=== PATIENT | male | born 1960 | race Caucasian/White ===

== ENCOUNTER 2019-04-02 09:53 | Inpatient (IN) ==
[2019-04-02] MEDS ORDERED: NITROGLYCERIN TOP ONE (10:04)
[2019-04-02] MEDS ORDERED: DUONEB (A & A) INH ONE (10:05)
[2019-04-02] MEDS ORDERED: SOLU-MEDROL IV ONE (10:05)
[2019-04-02 10:21] LABS: BASO# 0.06 X1000 (0.0-0.2); BASO% 0.5 % (0.0-0.8); EOS# 0.33 X1000 (0.0-0.7); HEMATOCRIT 55.8 % (42.0-52.0); HEMOGLOBIN 19.1 g/dL (14.0-18.0); IMM GRAN% 0.9 % (0.0-0.5); LYMPH# 4.11 X1000 (1.2-3.4); LYMPH% 37.4 % (20.5-51.1); MCH 29.9 PG (27-31); MCHC 34.2 g/dL (33-37); MCV 87.5 FL (81-99); MONO# 0.77 X1000 (0.11-0.59); MPV 11.7 FL (7.4-10.4); NEUT# 5.61 X1000 (1.4-6.5); NEUT% 51.2 % (42.2-75.2); PLT 222 X1000 (130-400); RBC 6.38 XMIL (4.7-6.1); RDW 13.1 % (11.5-14.5); WBC 10.98 X1000 (4.8-10.8)
[2019-04-02 10:26] LABS: INR 0.88; PROTIME 12.6 Seconds (11.0-16.0)
--- NOTE | 2019-04-02 10:35 | Diag Imaging Result Doc PS360 ---
EXAM: CHEST-PORTABLE - 04/02/2019 HISTORY: dyspnea TECHNIQUE: Portable chest COMPARISON: 03/15/2019 FINDINGS: Heart size appears the upper range of normal. There are sternal wires from previous surgery again seen. There is interstitial marking prominence. There is ill-defined infiltrate at the mid and lower lung on the left. These findings may relate to pulmonary edema. There is mild thickening of the right minor fissure. There is no large pleural effusion or pneumothorax identified. IMPRESSION: Findings which are suggestive of pulmonary edema. Pneumonia on the left is not excluded, however. Electronically signed by Esdras Vieyra 04/02/2019 10:33 AM
[2019-04-02] MEDS ORDERED: ROCEPHIN 2 GM in NS 50 ML IV ONE (10:42)
[2019-04-02] MEDS ORDERED: ZITHROMAX 500 MG/NS 500 MG/250 ML IVPB IV ONE (10:43)
[2019-04-02] MEDS ORDERED: MORPHINE IV ONE (10:45)
[2019-04-02 11:00] LABS: AGAP 22; ALB/GLOB RATIO 1.1; ALBUMIN 3.9 g/dL (3.5-5.0); ALKALINE PHOSPHATASE 126 U/L (32-122); BUN 11 mg/dL (8-22); CALCIUM 8.8 mg/dL (8.8-10.2); CHLORIDE 101 mmol/L (98-107); CK PROFILE 137 U/L (24-204); COSMO 298; CREATININE 0.9 mg/dL (0.7-1.2); ESTIMATED GFR > 60; GOT 33 U/L (10-34); GPT 41 U/L (10-44); POTASSIUM 3.4 mmol/L (3.5-5.1); SODIUM 141 mmol/L (136-145); TCO2 18 mmol/L (25-35); TOTAL BILIRUBIN 0.38 mg/dL (0.20-1.00); TOTAL PROTEIN 7.6 g/dL (6.3-8.3)
[2019-04-02 11:07] LABS: GLUCOSE 402 mg/dL (70-104)
[2019-04-02] MEDS ORDERED: HUMULIN R IV ONE (11:08)
[2019-04-02] MEDS ORDERED: LASIX IV ONE (11:09)
[2019-04-02 12:06] LABS: ALLEN TEST YES; BE -2.5 mmoll (-3.0-3.0); BLOOD TYPE ARTERIAL; HCO3-(ACT) 22.9 mmoll (20.0-26.0); METHB 0.7 % (0.0-1.5); O2(CT) 25.2 mL/dL (15.0-23.0); PCO2(98.6) 36 mmHg (35-45); PO2(98.6) 129 mmHg (60-100); SAMPLE BLOOD; SAO2 99.6 % (95.0-100.0); THB 18.4 g/dL (11.5-17.4); pH(98.6) 7.39 (7.35-7.45)
[2019-04-02 12:07] LABS: MODALITY NRB
--- NOTE | 2019-04-02 13:06 | Diag Imaging Result Doc PS360 ---
EXAM: CT THORAX W/O CONTRAST 04/02/2019 HISTORY: resp failure TECHNIQUE: This exam was performed using automated exposure control, adjustment of mA or kV according to patient size, and/or use of iterative reconstruction technique. COMMENT: There is severe COPD. There is interstitial opacity and a patchy distribution but particularly in the lingula right middle lobe and lower lobes with patchy denser alveolar opacity present in both lower lobes. Compared to 09/26/2017 these abnormalities were not present previously. There is apparent hepatic steatosis. This is worse in the right lobe than the left. There are extensive coronary calcifications and there has been previous sternotomy. No there is a small right pleural effusion which was not previously present. The regional skeleton is stable in appearance. IMPRESSION: Pulmonary edema plus minus pneumonia. Electronically signed by Fran Patel 04/02/2019 1:04 PM
[2019-04-02] MEDS ORDERED: ASPIRIN PO SCH (13:15)
--- NOTE | 2019-04-02 13:20 | EKG Report ---
Test Performed on : 04/02/2019 10:35:58 AM Test Reason : TACHYCARDIA Blood Pressure : / mmHG Vent. Rate : 102 BPM Atrial Rate : 102 BPM P-R Int : 152 ms QRS Dur : 122 ms QT Int : 384 ms P-R-T Axes : 025 -43 121 degrees QTc Int : 500 ms Sinus tachycardia. Possible Left atrial enlargement Left axis deviation Left ventricular hypertrophy with QRS widening and repolarization abnormality Abnormal ECG When compared with ECG of 15-MAR-2019 23:11, (Unconfirmed) ST now depressed in Anterior leads Unconfirmed Result
[2019-04-02] MEDS ORDERED: LOVENOX SUBQ SCH (13:30)
[2019-04-02 13:45] LABS: HEMOGLOBIN A1C > 19.9 % (4.8-6.0)
--- NOTE | 2019-04-02 14:14 | HISTORY AND PHYSICAL ---
STAFFING MGR: Dr. Nicholas Reaves. CHIEF COMPLAINT: Dyspnea. HISTORY OF PRESENT ILLNESS: Mr. Shrestha is a 58-year-old male with a history of known coronary artery disease status post CABG and stenting, type 2 diabetes requiring insulin, COPD, and others, who presents with acute onset of shortness of breath that began yesterday, he started having a productive cough, subjective fever and chills, and substernal chest pain. This morning, his symptoms worsened to the point where he felt like he could not move air and he called 911. When he arrived to the ER, he was noted to be tachypneic, tachycardic, and slightly hypoxic. He was given IV steroids, antibiotics, breathing treatment, and his chest x-ray showed suggestion of pulmonary edema with pneumonia not excluded. Laboratory data shows hemoconcentration, elevated lactic acid, elevated anion gap, metabolic acidosis, as well as hyperglycemia. Flu test is positive for Flu A. He will be admitted for further treatment and evaluation. PAST MEDICAL HISTORY: 1. Coronary artery disease status post NV and stenting as well as CABG, apparently scheduled for a defibrillator in the near future. 2. COPD. 3. Type 2 diabetes requiring insulin. 4. History of brain aneurysm. 5. Hypertension. 6. Hyperlipidemia. PAST SURGICAL HISTORY: Brain aneurysm repair, CABG, inguinal hernia repair, coronary stenting, diabetic ulcer repair. SOCIAL HISTORY: Denies tobacco, alcohol, or drug use. He lives alone. FAMILY HISTORY: Significant for type 2 diabetes. ALLERGIES: Vancomycin, latex, nitroglycerin, adhesives. HOME MEDICATIONS: Have yet to be compiled by the nursing staff. REVIEW OF SYSTEMS: A 14-point review of systems obtained and found to be negative with the exception of the HPI. PHYSICAL EXAMINATION: VITAL SIGNS: Blood pressure is 169/107, heart rate is 127, respiratory rate is 32, O2 saturation 95% on 100% nonrebreather, temperature is 97.9. GENERAL: Chronically ill-appearing 58-year-old male lying in hospital bed in mild respiratory distress. HEENT: Head is atraumatic, normocephalic. His pupils are equal, round, and reactive to light. Oral mucosa is dry. CHEST: Diminished throughout but otherwise clear to auscultation. CARDIOVASCULAR: Tachycardic but regular. S1 and S2 is noted. There are no murmurs. GASTROINTESTINAL: Soft, nondistended, nontender. Bowel sounds positive. EXTREMITIES: Trace edema. Pulses 1+ bilaterally. DIAGNOSTIC DATA: WBC 10.98, hemoglobin 19.1, hematocrit 55.8, platelet count 222. INR 0.88. ABG: pH 7.39, CO2 36, O2 129, bicarbonate 22.9. Sodium 141, potassium 3.4, chloride 101, CO2 18, anion gap 22, BUN 11, creat 0.9, glucose is 402, alkaline phosphatase 126. ProBNP is 606. Lactic acid 6.5. EKG shows sinus tach with ST depression in the anterior leads. ASSESSMENT AND PLAN: 1. Acute respiratory distress: Likely a combination of chronic obstructive pulmonary disease exacerbation, influenza A, and community-acquired pneumonia. Will continue with breathing treatments, aggressive pulmonary toilet, antibiotics, Tamiflu. He was given IV diuresis in the ER. Blood and sputum cultures have been ordered. 2. Early Sepsis: Pt is tachycardic with elevated lactate and is Flu +, likely with superimposed CAP. He was given mild diuresis in the ER, will need to monitor his volume status closely as there is evidence of volume overload (pulmonary edema) as well as sepsis. Will follow his I/Os and daily weights closely. 3. Coronary artery disease: The patient does report atypical type chest pain mainly midsternal with coughing, however, his EKG does show ST depression in the anterior leads. We will trend enzymes, check an echocardiogram, continue aspirin. We will consult cardiology if he has continued chest pain or his cardiac enzymes trend upward. 4. Type 2 diabetes: His blood sugar is 402, while he does have an elevated anion gap, his lactate is quite elevated which can explain his gap. We will check an abg, if he is not acidotic, we will continue with sub-q insulin. Check hemoglobin A1c, pattern sugar, sliding scale insulin. Deep venous thrombosis prophylaxis with Lovenox, Further recommendations to follow. Dictated by ALEJANDRA Reyes for Tristin Arellano MD cc: ALEJANDRA Reyes Agree with the above. the following is my own face to face assessment. Patient with multifactorial respiratory problems. copd exac, likely pneumonia, and possible CHF. labs look volume down as does the patient on exam so will hold on further lasix. get echo to clarify EF. if BP worsens then will likely give IVF. MTDD
[2019-04-02] MEDS: NORCO-7.5 PO SCH ×2 (15:56→21:36)
[2019-04-02] MEDS: TAMIFLU PO SCH ×2 (15:57→21:36)
[2019-04-02] MEDS: ROCEPHIN 1 GM in NS 50 ML IV SCH (15:57)
[2019-04-02 16:00] LABS: URINE SOURCE CLEAN CATCH
[2019-04-02 16:05] LABS: BILIRUBIN URINE NEGATIVE (NEGATIVE); BLOOD URINE NEGATIVE (NEGATIVE); COLOR STRAW; GLUCOSE URINE >1000 mg/dL (NEGATIVE); KETONE URINE NEGATIVE (NEGATIVE); LEUKOCYTES URINE NEGATIVE (NEGATIVE); NITRITE URINE NEGATIVE (NEGATIVE); PH URINE 5.5; PROTEIN URINE NEGATIVE (NEGATIVE); SP GRAVITY URINE 1.007; TURBIDITY URINE CLEAR (CLEAR); UROBILINOGEN URINE NORMAL (NORMAL)
[2019-04-02 16:06] LABS: UR EPITHELIAL CELLS <10 /HPF (<10); URINE BACTERIA NEGATIVE /HPF; URINE RBC <10 /HPF (<10); URINE WBC <10 /HPF (<10)
[2019-04-02] MEDS: HUMALOG SUBQ SCH ×2 (17:16→21:37)
--- NOTE | 2019-04-02 17:53 | PROVIDER DOCUMENTATION ---
This chart was entered by Agnes Rosenberg Scribe, acting as scribe for Jay Lynch MD. HPI-Respiratory General - General Chief Complaint: Shortness of Breath Stated Complaint: SOB Time Seen by Provider: 04/02/19 09:57 Source: patient Allergies/Adverse Reactions: Patient Allergies Allergy/AdvReac Type Severity Reaction Status Date / Time vancomycin Allergy Severe SHORTNESS Verified 03/15/19 23:51 OF BREATH latex Allergy Intermediate HIVES Verified 03/15/19 23:51 nitroglycerin Allergy RASH Verified 04/02/19 10:13 adhesive AdvReac Mild RASH Verified 03/15/19 23:51 Home Medications: Home Medication List Medication Instructions Recorded Confirmed Last Taken Type Aspirin [Aspirin EC] 1 each PO QAM 04/09/16 04/02/19 04/01/19 09:00 History Gabapentin [Neurontin] 600 mg PO TID 09/14/17 04/02/19 03/31/19 History Insulin Aspart Prot/Insuln Asp 40 unit SQ BID 09/14/17 04/02/19 09/13/17 History [Novolog Mix 70-30 Vial] Carvedilol 1 tab PO BID 03/16/19 04/02/19 03/31/19 History Hydrocodone/Acetaminophen [[place] 1 tab PO RTBID 03/16/19 04/02/19 Unknown History 7.5-325 Tablet] Isosorbide Mononitrate [Isosorbide 1 tab PO QAM 03/16/19 04/02/19 04/01/19 09:00 History Mononitrate ER] Prasugrel [Effient] 1 tab PO QAM 03/16/19 04/02/19 03/30/19 History - History of Present Illness-Resp Nature of Presenting Problem: 58 y/o male presents to ED with SOB onset yesterday and worsening this morning. Pt reports he feels like he did when he had pneumonia. Pt also complains of productive cough, chills, subjective fever, and substernal chest pain for the past 3 days. Pt arrived via EMS on a nonrebreather. Pt is alert and oriented. Quality of Pain: reports: sharp Severity in ED: reports: moderate Onset/Duration: reports: 24 hours ago, 3 days ago Timing: reports: still present Context: reports: other Exposure: reports: unknown cause Cough Quality/Degree: reports: productive cough Episode Frequency: no prior episodes Current Respiratory Medication Therapy: Initiated see nurses note Modifying Factors: improves with: nothing Associated Symptoms: reports: chest pain/soreness, cough, fever/chills, shortness of breath, short of breath Similar Symptoms Previously?: No Recently seen or treated by another doctor?: No Review of Systems - Adult - REVIEW OF SYSTEMS - ADULT Constitutional: reports: chills, fever Eyes: reports: no symptoms reported Ears, Nose, Mouth & Throat: reports: no symptoms reported Cardiovascular: reports: chest pain. denies: palpitations Respiratory: reports: cough, shortness of breath Gastrointestinal: denies: abdominal pain, diarrhea, nausea, vomiting Genitourinary: reports: no symptoms reported Musculoskeletal: denies: back pain, joint pain Integumentary: reports: no symptoms reported Neurological: denies: dizziness/vertigo, seizure Psychiatric: reports: no symptoms reported Endocrine: reports: no symptoms reported Hematologic/Lymphatic: reports: no symptoms reported Allergic/Immunologic: reports: no symptoms reported All Other Systems: Reviewed and Negative Past History - Adult - PAST MEDICAL HISTORY-ADULT Review of Records: reports: Old Records Reviewed, Nursing Assessment Review, Medications Reviewed Major Childhood Illnesses: reports: denies history Cardiovascular: reports: CHF, HTN, hyperlipidemia, [place] Respiratory: reports: denies history Gastrointestinal: reports: GERD Obstetrical/Gynecological: reports: denies history Genitourinary: reports: denies history Musculoskeletal: reports: chronic pain, other Neurological: reports: CVA, spinal cord/brain injury, TIA, other (brain aneurysm) Psychiatric: reports: anxiety, depression Endocrine/Immune: reports: Diabetes Other Conditions: reports: other cancer, other (charcot Maile-Tooth) - PRIOR SURGERIES/PROCEDURES Surgical/Procedure History: reports: recent surgery, CABG, cardiac stent, tonsillectomy, hernia repair, orthopedic (extremity) (foot debribement), other - PRIOR HOSPITALIZATIONS Prior Hospitalizations: reports: for similar symptoms - IMMUNIZATION STATUS Childhood Immunizations: See Nurse Assessment Flu Vaccine: See Nurse Assessment - FAMILY HISTORY Family History: reviewed, not pertinent - SOCIAL HISTORY Smoking: quit greater than 1 year Substance Use: none/never Alcohol Use Frequency: never Living Situation: family Physical Exam-General - PHYSICAL EXAM-ADULT Initial Vital Signs Reviewed: Yes - CONSTITUTIONAL General Appearance: alert, severe distress - EYES Eyes: PERRL/EOMI, pink conjunctivae - HEAD, EARS, NOSE, MOUTH & THROAT HENMT: normocephalic/atraumatic, moist mucous membranes, normal ENT inspection - NECK Neck: non-tender, full range of motion - RESPIRATORY Respiratory: chest non-tender, respiratory distress, rhonchi (diffuse), increased rate - CARDIOVASCULAR Cardiovascular: tachycardia - GASTROINTESTINAL (ABDOMEN) Abdominal Exam: normal bowel sounds, non tender, soft - MUSCULOSKELETAL Back Exam: normal inspection, no CVA tenderness Extremity: normal range of motion, non-tender - SKIN Integumentary: normal color, warm/dry, diaphoresis - NEUROLOGIC Neurologic: grossly normal - PSYCHIATRIC Psych/Mental Status: normal mood/affect, normal thought content, normal thought process - HEART Score HEART Score: History: Slightly Suspicious HEART Score: ECG: Non-Specific Repolarization Disturbance/LBBB/PM HEART Score: Age: 45-65 Years HEART Score: Risk Factors for Atherosclerotic Disease: > or = 3 Risk Factors or History of Atherosclerotic Disease HEART Score: Troponin: < or = Normal Limit Total HEART Score:: 4 Progress - PLAN OF CARE/RESULTS Progress/Plan/Lab Results: Vital Signs - 8 hr 04/02/19 10:02 04/02/19 10:25 Temperature 97.9 F Pulse Rate 127 H Respiratory Rate 32 H 28 H Blood Pressure 169/107 O2 Sat by Pulse Oximetry 95 98 04/02/19 10:31 Influenza Screen - Final Nasopharyngeal Laboratory Results - last 24 hr 04/02/19 04/02/19 04/02/19 10:03 10:03 10:03 WBC 10.98 H RBC 6.38 H Hgb 19.1 H Hct 55.8 H MCV 87.5 MCH 29.9 MCHC 34.2 RDW Std Deviation 13.1 Plt Count 222 MPV 11.7 H Immature Gran % (Auto) 0.9 H Neut % (Auto) 51.2 Lymph % (Auto) 37.4 Garza % (Auto) 7.0 Eos % (Auto) 3.0 Baso % (Auto) 0.5 Immature Gran # (Auto) 0.10 H Neut # (Auto) 5.61 Lymph # (Auto) 4.11 H Garza # (Auto) 0.77 H Eos # (Auto) 0.33 Baso # (Auto) 0.06 PT INR PTT (Actin FS) Specimen Type Sample Site pH pCO2 pO2 HCO3 Base Excess Oxyhemoglobin ABG O2 Sat (Calculated) ABG O2 Saturation ABG Carboxyhemoglobin ABG Methemoglobin Shashi Test A-a O2 Difference Total Hemoglobin Lactate Liter Flow Blood Gas Modality FiO2 % Sodium 141 Potassium 3.4 L Chloride 101 Carbon Dioxide 18 L Anion Gap 22 BUN 11 Creatinine 0.9 Estimated GFR/1.73 m2 > 60 BUN/Creatinine Ratio 12 Glucose 402 H* Estimat Average Glucose Hemoglobin A1c Calculated Osmolality 298 Calcium 8.8 Total Bilirubin 0.38 AST 33 ALT 41 Alkaline Phosphatase 126 H Creatine Kinase 137 Troponin T Ulj-Y-Thiyqffercx Pept Total Protein 7.6 Albumin 3.9 Globulin 3.7 Albumin/Globulin Ratio 1.1 Lipase Plasma Lactate 6.5 H 04/02/19 04/02/19 04/02/19 10:03 10:03 10:03 WBC RBC Hgb Hct MCV MCH MCHC RDW Std Deviation Plt Count MPV Immature Gran % (Auto) Neut % (Auto) Lymph % (Auto) Garza % (Auto) Eos % (Auto) Baso % (Auto) Immature Gran # (Auto) Neut # (Auto) Lymph # (Auto) Garza # (Auto) Eos # (Auto) Baso # (Auto) PT 12.6 INR 0.88 PTT (Actin FS) 26.0 Specimen Type Sample Site pH pCO2 pO2 HCO3 Base Excess Oxyhemoglobin ABG O2 Sat (Calculated) ABG O2 Saturation ABG Carboxyhemoglobin ABG Methemoglobin Shashi Test A-a O2 Difference Total Hemoglobin Lactate Liter Flow Blood Gas Modality FiO2 % Sodium Potassium Chloride Carbon Dioxide Anion Gap BUN Creatinine Estimated GFR/1.73 m2 BUN/Creatinine Ratio Glucose Estimat Average Glucose Hemoglobin A1c Calculated Osmolality Calcium Total Bilirubin AST ALT Alkaline Phosphatase Creatine Kinase Troponin T 0.032 Esw-U-Ukyuibwwiok Pept 606 H Total Protein Albumin Globulin Albumin/Globulin Ratio Lipase Plasma Lactate 04/02/19 04/02/19 04/02/19 10:03 10:03 11:57 WBC RBC Hgb Hct MCV MCH MCHC RDW Std Deviation Plt Count MPV Immature Gran % (Auto) Neut % (Auto) Lymph % (Auto) Garza % (Auto) Eos % (Auto) Baso % (Auto) Immature Gran # (Auto) Neut # (Auto) Lymph # (Auto) Garza # (Auto) Eos # (Auto) Baso # (Auto) PT INR PTT (Actin FS) Specimen Type ARTERIAL Sample Site R RADIAL pH 7.39 pCO2 36 pO2 129 H HCO3 22.9 Base Excess -2.5 Oxyhemoglobin 97.0 ABG O2 Sat (Calculated) 25.2 H ABG O2 Saturation 99.6 ABG Carboxyhemoglobin 1.80 ABG Methemoglobin 0.7 Shashi Test YES A-a O2 Difference 539.0 Total Hemoglobin 18.4 H Lactate 3.50 H Liter Flow 15.0 Blood Gas Modality NRB FiO2 % 100.0 Sodium Potassium Chloride Carbon Dioxide Anion Gap BUN Creatinine Estimated GFR/1.73 m2 BUN/Creatinine Ratio Glucose Estimat Average Glucose Hemoglobin A1c > 19.9 H Calculated Osmolality Calcium Total Bilirubin AST ALT Alkaline Phosphatase Creatine Kinase Troponin T Oyg-D-Wvwxalzdwsi Pept Total Protein Albumin Globulin Albumin/Globulin Ratio Lipase 41 Plasma Lactate Orders Category Date Time Status Admit - [facility] Routine AdmDCTranf 04/02/19 11:31 Active Activity - Up with Assistance ORDERED Care 04/02/19 13:06 Active DVT/PE Risk Assess/Protocol [QM] ORDERED Care 04/02/19 13:06 Active Intake and Output-Strict ORDERED Care 04/02/19 13:06 Active Vital Signs Order Q 4-HR ASSESS Care 04/02/19 13:06 Active Z-Document. for Tele Applied ORDERED Care 04/02/19 13:06 Completed Diabetic Diet Diet 04/02/19 13:11 Active CHEST-PORTABLE [RAD] Stat Exams 04/02/19 10:[address] THORAX W/O CONTRAST [CT] Stat Exams 04/02/19 12:14 Completed A1C HGB W EST AVG GLUCOSE [CHEM] Timed Lab 04/02/19 10:03 Completed ABG [RESP] Routine Lab 04/02/19 11:57 Completed BASIC METABOLIC PANEL [CHEM] DAILY Lab 04/03/19 06:00 Ordered BASIC METABOLIC PANEL [CHEM] DAILY Lab 04/04/19 06:00 Ordered BASIC METABOLIC PANEL [CHEM] DAILY Lab 04/05/19 06:00 Ordered BLOOD CULTURE [BLDCUL] Stat Lab 04/02/19 10:03 Results CBC WITH DIFF [HEME] DAILY Lab 04/03/19 06:00 Ordered CBC WITH DIFF [HEME] DAILY Lab 04/04/19 06:00 Ordered CBC WITH DIFF [HEME] DAILY Lab 04/05/19 06:00 Ordered CBC WITH ELECTRONIC DIFF [HEME] Stat Lab 04/02/19 10:03 Completed CK PROFILE [SP CHEM] Q8H Lab 04/02/19 13:32 Completed CK PROFILE [SP CHEM] Q8H Lab 04/02/19 21:00 Ordered CK PROFILE [SP CHEM] Stat Lab 04/02/19 10:03 Completed COMPREHENSIVE METABOLIC PANEL [CHEM] Stat Lab 04/02/19 10:03 Completed FREE T4 Timed Lab 04/02/19 13:32 Completed INFLUENZA SCREEN A/B Stat Lab 04/02/19 10:31 Completed LACTATE, PLASMA [CHEM] Stat Lab 04/02/19 10:03 Completed LACTATE, PLASMA [CHEM] Stat Lab 04/02/19 14:44 Completed LIPASE [CHEM] Stat Lab 04/02/19 10:03 Completed LIPID PROFILE W/DIR LDL [LIPIDS] Routine Lab 04/03/19 06:00 Ordered MAGNESIUM [CHEM] DAILY Lab 04/03/19 06:00 Ordered MAGNESIUM [CHEM] DAILY Lab 04/04/19 06:00 Ordered MAGNESIUM [CHEM] DAILY Lab 04/05/19 06:00 Ordered PRO B-NATRIURETIC PEPTIDE Stat Lab 04/02/19 10:03 Completed PROTIME WITH INR [COAG] Stat Lab 04/02/19 10:03 Completed PTT [COAG] Stat Lab 04/02/19 10:03 Completed TROPONIN T Q8H Lab 04/02/19 13:32 Completed TROPONIN T Q8H Lab 04/02/19 21:00 Ordered TROPONIN T Stat Lab 04/02/19 10:03 Completed TSH Timed Lab 04/02/19 13:32 Completed URINALYSIS W/POSS RFLX CULT [URINALYSIS] Routine Lab 04/02/19 15:00 Completed Albuterol 2.5MG/Ipratrop 0.5MG [Duoneb (A & A)] Med 04/02/19 10:05 Discontinued 3 ml INH NOW ONE Aspirin Med 04/02/19 13:15 Active 325 mg PO DAILY Azithromycin 500 mg/Ns [Zithromax 500 mg/Ns] Med 04/02/19 10:43 Discontinued 500 mg in 250 ml IV NOW Azithromycin 500 mg/Ns [Zithromax 500 mg/Ns] Med 04/03/19 11:00 Active 500 mg in 250 ml IV Q24H CefTRIAXONE [Rocephin] 1 gm Med 04/02/19 13:00 Active 0.9% Sodium Chloride Inj [Ns] 50 ml IV Q24H CefTRIAXONE [Rocephin] 2 gm Med 04/02/19 10:42 Discontinued 0.9% Sodium Chloride Inj [Ns] 50 ml IV NOW Furosemide [Lasix] Med 04/02/19 11:09 Discontinued 40 mg IV NOW ONE Insulin Human Regular [Humulin R] Med 04/02/19 11:08 Discontinued 10 unit IV NOW ONE Insulin Lispro [Humalog] Med 04/02/19 16:00 Active See Protocol SUBQ 0700,1100,1600,2100 Methylprednisolone Sod Succ [Solu-Medrol] Med 04/02/19 10:05 Discontinued 125 mg IV NOW ONE Morphine Med 04/02/19 10:45 Discontinued 2 mg IV NOW ONE Nitroglycerin Med 04/02/19 10:04 Discontinued 1 inch TOP NOW ONE Oseltamivir [Tamiflu] Med 04/02/19 13:00 Active 75 mg PO BID Aerosol Treatments Routine Oth 04/02/19 10:05 Completed Aerosol Treatments Stat Oth 04/02/19 10:05 Completed BIPAP Stat Oth 04/02/19 10:18 Completed Telemetry [OM.EQ] Routine Oth 04/02/19 13:06 Active Transfer/Admit Order [TRANSFER] Routine Transfer 04/02/19 12:46 Completed Result Diagrams: 04/02/19 10:03 04/02/19 10:03 - REASSESSMENT Reassessment #1 Time Reassessed: 10:28 Status: improving (Pt appears more comfortable. Heart rate improved. Pt still complaining of chest pain. Repeat EKG ordered.) Reassessment #2 Time Reassessed: 10:40 Status: other (Lactate noted. Pt has hx CHF with possible active exacerbation. Will defer fluid bolus pending remainder of workup.) Reassessment #3 Time Reassessed: 11:22 Status: other (Pt has taken his nonrebreather off and is now complaining of abd ominal pain, but states it might be the goody powder he took this morning.) - EKG 1 Time of EKG reading by physician:: 09:59 EKG Read and Signed by:: Jay Lynch EKG Interpretation (*Must complete 3 of following elements*): Abnormal Rate: 127 Rhythm: Sinus tach with occasional PVCs [place]: left QRS: LVH (with repolarization abnormality), PVC's, other (possible L atrial enlargement) HI Interval: normal ST Wave: normal 2 Time of EKG reading by physician:: 10:35 EKG Read and Signed by:: Jay Lynch EKG Interpretation (*Must complete 3 of following elements*): Abnormal Rate: 102 Rhythm: Sinus tach [place]: left QRS: LVH (with QRS widening and repolarization abnormality), other (possible L atrial enlargement) HI Interval: normal ST Wave: normal - XRAY 1 XRAY Study: Chest Impression: Abnormal (FINDINGS: Heart size appears the upper range of normal. There are sternal wires from previous surgery again seen. There is interstitial marking prominence. There is ill-defined infiltrate at the mid and lower lung on the left. These findings may relate to pulmonary edema. There is mild thickening of the right minor fissure. There is no large pleural effusion or pneumothorax identified. IMPRESSION: Findings which are suggestive of pulmonary edema. Pneumonia on the left is not excluded, however. Electronically signed by Esdras Vieyra 04/02/2019 10:33 AM) - CONSULTS/PCP/HOSPITALIST Notification #1 *Consult/PCP/Hospitalist*: ALEJANDRA Fuller for Dr. Arellano Time Discussed: 11:30 Reason/Comments: SOB, respiratory distress Consult Disposition: Admit Departure - Departure Date of Disposition Decision: 04/02/19 Time of Disposition Decision: 11:31 DIAGNOSIS: SOB (shortness of breath), Respiratory distress Disposition: ADMITTED INPATIENT 09 Certified Medical Emergency: Emergent Condition: Fair - Critical Care Note This patient required my direct & personal management of CC.: Yes Total Time (mins): 43 Critical Care Statement: This patient required my direct personal management to treat or rule out processes, the absence of which, could potentiallly result in sudden, clinically significant life or limb threatening deterioration. Attestation - Physician/ ADRIANA Attestation Patient care was provided by Advanced Practice Provider:: No The physician spent face to face time with patient:: Yes Advanced Practice Provider documentation review:: Supervising physician onsite and consulted in the evaluation and care of this patient. The physician did have a face to face encounter with the patient. This chart was documented by the indicated scribe, (Agnes Rosenberg Scribe) and accurately reflects the services I performed and decisions made by , Jay Lynch MD, as attested by the provider's signature.
--- NOTE | 2019-04-02 18:49 | CARDIOLOGY CONSULTATION ---
DATE: 04/02/2019 CHIEF COMPLAINT ON PRESENTATION: Dyspnea. HISTORY OF PRESENT ILLNESS: Mr. Shrestha is a 58-year-old white male with a history of coronary disease with previous bypass grafting who presented with 2 to 3 days of shortness of breath, subjective fever, and productive cough. He cannot think any sick contacts and has had a flu shot which he received last fall. He has had some discomfort in his chest that occurs predominantly with coughing. He has no exertional chest pain. He has a history of coronary bypass grafting but has not been following with a viticulturist as he has multiple no-shows in cancellations noted in Dr. Reaves's clinic. He reports compliance with his medications. He does not smoke. PAST MEDICAL HISTORY: 1. Significant for coronary bypass grafting. He has a history of bypass in patient believes 2010. At that time, he had a OWUSU to the LAD. He has a vein graft to the left PDA. His last catheterization was in May of 2018 showing a short and normal left main. The LAD was occluded in the proximal portion. The CAYDEN is patent and smooth to the LAD. The circumflex has a 99% disease in the midsection. There is a high OM1 with 99% disease as well. This was stented at that time with a drug-eluting stent. The OM2 has 60% disease. OM3 has 95% ostial disease and is a short vessel. There was competitive flow visualized from the vein graft to the PDA. It was noted to be smooth and patent. The RCA was totally occluded in its proximal portion. 2. Ischemic cardiomyopathy. His previous ejection fraction by echo in May of 2018 was 35%. 3. COPD. 4. Diabetes mellitus type 2. 5. History of brain aneurysm. 6. Hypertension. 7. Hyperlipidemia. SOCIAL HISTORY: No tobacco, alcohol, or illicit drug use. FAMILY HISTORY: Significant for diabetes mellitus type 2, as well as CVAs. REVIEW OF SYSTEMS: A 10 system review of systems is negative except for those things mentioned in the HPI. PHYSICAL EXAMINATION: Vital signs: This hospitalization the patient has been afebrile. His heart rate is 92. His blood pressure is 124/76. General: He is in no acute distress. HEENT: Oropharynx is moist. Poor dentition. Eye examination shows pink conjunctivae, white sclerae. Neck: Examination shows no obvious thyromegaly or thyroid tenderness. Cardiovascular: He sounds to be in a regular rate and rhythm. I do not hear any obvious murmurs. He has no S3. He has no lower extremity edema. Chest: Exam sounds relatively clear with poor inspiratory effort. He has no increased work of breathing. Abdomen: Soft, nontender, nondistended. He has no obvious organomegaly. Skin: Warm and dry throughout without any rashes. Neurological: He is moving all extremities well. He has no lateralizing deficits. PERTINENT DATA: His chest x-ray shows suggestion of pulmonary edema with possible pneumonia noted in the right middle lobe and lower lobes with patchy dense alveolar opacities in the bilateral lower lobes. His EKG demonstrated sinus rhythm. He had some mild ST depression in the lateral limb leads, as well as V4 through V6. No obvious Q-waves were identified. This did not appear markedly different from his EKG in February, in which the lateral limb leads had mild ST depression. He did not have it present in the lateral chest leads on that last study in February of 2019. His lab data shows a white count of 10.9. His hematocrit is 55.8. His platelet count is 222,000. His sodium is 141, potassium 3.4. His BUN is 11, creatinine 0.9. His cardiac enzymes are positive with the initial of 0.032, subsequent 0.137. His proBNP is 606. His thyroids are normal. ASSESSMENT: Mr. Shrestha is a 58-year-old gentleman who presented with cough/dyspnea. CT scan suggests pneumonia plus or minus pulmonary edema. His influenza A screen was positive. PLAN: Will allow the patient to recover from his pulmonary infectious process. I would likely pursue myocardial perfusion imaging prior to him being discharged. He does have several areas that have non-revascularized on his cath and those areas do not particularly seen revascularizable based on his previous catheterization in 2018. We will assess his ischemic burden based on those studies. He is on Effient. I would reduce his aspirin to 81 mg. I would preferentially try to restart his beta ryne as well as his Imdur at this point. cc: Tay Chan MD
[2019-04-02] MEDS: COREG PO SCH (21:36)
--- NOTE | 2019-04-02 21:53 | ECHO REPORT ---
ORDER DATE: 04/02/2019 SUMMARY: 1. Very difficult study for interpretation due to very limited acoustic window quality. Intravenous echo contrast agent. Ultrasound was utilized to enhance endocardial definition. 2. Aortic valve is not well imaged but appears to be free of structure abnormality and opens adequately on 2-dimensional images. 3. Mitral and tricuspid valves are without evidence of structural abnormality with trace mitral regurgitation. 4. Pulmonic valve is not well demonstrated. The aortic root is normal in size. 5. Mild left ventricular enlargement with mild concentric left hypertrophy is demonstrated. Estimated left ventricular ejection fraction approximately 35% in the setting of global hypokinesis. Left atrium is moderately enlarged. Right atrium and right ventricle are normal in size. 6. No pericardial effusion. 7. Appearance of inferior vena cava suggests normal central venous pressure. cc: MD Tobin Rosen CRNP
[2019-04-02 22:46] LABS: CK INDEX 10.6 (0.0-2.5); CK-MB 26.17 ng/mL (0.0-5.0)
[2019-04-02] MEDS: MELATONIN PO SCH (22:54)
[2019-04-03] MEDS ORDERED: TUSSIONEX LIQUID PO ONE (02:47)
[2019-04-03] MEDS ORDERED: TUMS EXTRA STRENGTH PO ONE (02:47)
[2019-04-03] MEDS: NORCO-7.5 PO SCH ×2 (06:35→17:44)
[2019-04-03 07:17] LABS: BASO# 0.01 X1000 (0.0-0.2); BASO% 0.1 % (0.0-0.8); HEMOGLOBIN 17.1 g/dL (14.0-18.0); IMM GRAN# 0.06 X1000 (0.0-0.04); IMM GRAN% 0.4 % (0.0-0.5); LYMPH# 1.42 X1000 (1.2-3.4); LYMPH% 8.7 % (20.5-51.1); MCH 30.3 PG (27-31); MCHC 34.9 g/dL (33-37); MCV 86.7 FL (81-99); MONO# 0.91 X1000 (0.11-0.59); MONO% 5.6 % (1.7-9.3); NEUT# 13.99 X1000 (1.4-6.5); NEUT% 85.2 % (42.2-75.2); PLT 199 X1000 (130-400); RBC 5.65 XMIL (4.7-6.1); RDW 12.8 % (11.5-14.5); WBC 16.39 X1000 (4.8-10.8)
[2019-04-03 07:46] LABS: AGAP 13; BUN 21 mg/dL (8-22); CALCIUM 8.9 mg/dL (8.8-10.2); CHLORIDE 101 mmol/L (98-107); COSMO 290; CREATININE 0.8 mg/dL (0.7-1.2); ESTIMATED GFR > 60; GLUCOSE 301 mg/dL (70-104); SODIUM 138 mmol/L (136-145); TCO2 24 mmol/L (25-35)
[2019-04-03] MEDS ORDERED: SOLU-MEDROL IV SCH (08:00)
[2019-04-03] MEDS: COREG PO SCH ×2 (08:15→21:41)
[2019-04-03] MEDS: IMDUR PO SCH (08:15)
[2019-04-03] MEDS: TAMIFLU PO SCH ×2 (08:15→21:41)
[2019-04-03] MEDS: ASPIRIN PO SCH (08:15)
[2019-04-03] MEDS: NEURONTIN PO SCH ×3 (08:15→17:44)
[2019-04-03] MEDS: EFFIENT PO SCH (08:15)
[2019-04-03] MEDS: HUMALOG SUBQ SCH ×4 (08:16→21:40)
[2019-04-03] MEDS ORDERED: EFFIENT PO SCH (09:00)
[2019-04-03 09:12] LABS: LYMPHS 10 % (21-51); MONO 6 % (1-9); SEGS 84 % (42-75)
[2019-04-03 09:13] LABS: LARGE PLATELETS 2+
--- NOTE | 2019-04-03 09:23 | EKG Report ---
Test Performed on : 04/03/2019 09:04:35 AM Test Reason : NSTEMI Blood Pressure : / mmHG Vent. Rate : 078 BPM Atrial Rate : 078 BPM P-R Int : 156 ms QRS Dur : 126 ms QT Int : 400 ms P-R-T Axes : 035 -40 123 degrees QTc Int : 456 ms Normal sinus rhythm. Left axis deviation Left ventricular hypertrophy with QRS widening and repolarization abnormality Abnormal ECG When compared with ECG of 02-APR-2019 10:35, (Unconfirmed) T wave inversion more evident in Lateral leads QT has shortened Confirmed by Zhang MENDOZA, Josef Dwyer ([id number]) on 04/04/2019 10:54:16 AM
--- NOTE | 2019-04-03 10:29 | Diag Imaging Result Doc PS360 ---
EXAM: CHEST-PORTABLE HISTORY: pna/flu A+ TECHNIQUE: Chest single view COMPARISON: 04/02/2016 FINDINGS: The lungs are well expanded. Interval improvement with decreased infiltrates/pulmonary edema. No cardiomegaly. No pleural effusions identified. IMPRESSION: Marked interval improvement. Electronically signed by Sundeep Cary 04/03/2019 10:27 AM
[2019-04-03] MEDS ORDERED: INSULIN PEN NEEDLES ONE (11:32)
--- NOTE | 2019-04-03 11:33 | PROGRESS NOTE ---
DATE: 04/03/2019 INTERVAL HISTORY: No acute event overnight. SUBJECTIVE: The patient is still feeling short of breath. He is complaining of orthopnea. He is complaining of cough with whitish mucoid expectoration, which sometimes has blood in it. We discussed about his clinical course, his physical exam findings, diagnosis, and answered all of his questions. He has not had any fevers or chills anymore. VITALS: Currently, vitals detect temperature 97.6 degrees, pulse 81, respiratory rate 16, blood pressure 120/100, saturating 96% on room air. PHYSICAL EXAMINATION: General: He appears anxious and is in mild distress because of shortness of breath. HEENT: He also has facial plethora. Oral cavity is moist. No pallor, cyanosis, clubbing, or icterus. Lungs: Decreased air entry bilateral lung rae with inspiratory crackles bilateral infrascapular region. No appreciable wheeze or rhonchi. Heart: S1, S2 normal. Not tachycardic. No murmur, rub, or gallop. Abdomen: Obese, soft. Mild tenderness in bilateral rib cage area. No hepatojugular reflux. Tympanic to percussion. Extremities: He has bilateral lower extremity edema. Neurologic: He is alert oriented x3. Input and output suggests he was - 180 mL yesterday. However, it is not charted appropriately it seems. LABS: Suggestive of leukocytosis with eosinophil count of zero, suggestive of steroid induced. Resolution of hypokalemia. Normal kidney function, persistent hyperglycemia, persistently increasing troponins. Lipid panel suggestive of LDL of 166. MICROBIOLOGY: No positive data to date. X-RAYS: EKG today suggestive of normal sinus rhythm. He has T-wave inversions affecting the lateral leads that were present on admission as well. His LDL cholesterol is high. ASSESSMENT AND PLAN: 1. Acute respiratory distress and sepsis in the setting of influenza type A, bilateral pulmonary edema and suspected community-acquired pneumonia. Continue broad-spectrum ceftriaxone, azithromycin, ipratropium nebulization and decrease steroid dosing. Follow up blood culture. Sputum culture has been ordered with urine antigens. Continue respiratory precautions and also continue Tamiflu. 2. Non ST elevation myocardial infarction with prior history of coronary artery disease and coronary artery bypass graft with last stent being in May 2018 and mild acute systolic congestive heart failure exacerbation with ejection fraction of 35%. Increase enoxaparin to 1 mg/kg bid dosing and continue his home aspirin, prasugrel, isosorbide, and add atorvastatin. Continue patient on intravenous Lasix with close input and output monitoring. Continue beta blockers. 3. History of insulin-dependent diabetes mellitus type 2 with uncontrolled hyperglycemia. Start patient on his home Humulin and sliding scale insulin and adjust dose to better control blood sugars. 4. Others. Continue melatonin for insomnia. Start patient on as-needed Ativan for anxiety, and continue home [place] for chronic pain. 5. Disposition: The patient remains inside the hospital for his respiratory distress and suspected non ST elevation myocardial infarction. Plan of care discussed with him. All of his questions have been answered. Cardiology has been on board. I will appreciate further recommendation about further cardiovascular workup. cc: Ant Kwon MD
[2019-04-03] MEDS: LOVENOX SUBQ SCH ×2 (11:35→21:45)
[2019-04-03] MEDS: LIPITOR PO SCH (11:35)
[2019-04-03] MEDS: ATIVAN PO PRN ×2 (11:35→21:41)
[2019-04-03] MEDS: LASIX IV SCH (11:36)
[2019-04-03] MEDS: HUMULIN 70/30 SUBQ SCH ×2 (11:36→21:39)
--- NOTE | 2019-04-03 11:53 | EKG Report ---
Test Performed on : 04/02/2019 09:59:14 AM Test Reason : ED. No order in [place] Blood Pressure : / mmHG Vent. Rate : 127 BPM Atrial Rate : 127 BPM P-R Int : 138 ms QRS Dur : 112 ms QT Int : 322 ms P-R-T Axes : 038 -44 118 degrees QTc Int : 467 ms Sinus tachycardia. with occasional premature ventricular complexes. Possible Left atrial enlargement Left axis deviation Left ventricular hypertrophy with repolarization abnormality Abnormal ECG No previous ECGs available Unconfirmed Result
[2019-04-03] MEDS: ZITHROMAX 500 MG/NS 500 MG/250 ML IVPB IV SCH (12:36)
[2019-04-03] MEDS: ROCEPHIN 1 GM in NS 50 ML IV SCH (15:04)
[2019-04-03] MEDS: ROBITUSSIN PO PRN ×2 (15:50→21:37)
--- NOTE | 2019-04-03 18:52 | CARDIOLOGY PROGRESS NOTE ---
DATE: 04/03/2019 SUBJECTIVE: Mr. dmaon reports continued shortness of breath overnight. OBJECTIVE/PHYSICAL EXAMINATION: Vital Signs: He is afebrile. Heart rate of 80, blood pressure 97/76. General: He is in no acute distress. Cardiovascular: He sounds to be in a regular rate and rhythm. He has no murmurs. He has no S3. He has no lower extremity edema noted. Chest: Sounds relatively clear. No increased work of breathing. Abdomen: Soft. No obvious organomegaly. PERTINENT DATA: His chest x-ray shows marked interval improvement in the edema and infiltrates. His white count is 16.4, hematocrit 49, platelet count is 199. He has a left shift. His sodium is 138, potassium 4, BUN is 21 creatinine 0.8. His troponin continues to rise slightly at 0.365. His LDL is 166. ASSESSMENT: Mr. Damon is a 58-year-old gentleman who presented with complaints of shortness of breath and was found to have a pneumonia/influenza. His troponin has elevated. PLAN: We will likely proceed with myocardial perfusion imaging in the next few days or so. I would recommend continuing to allow him to recover from his influenza. cc: Tay Chan MD
[2019-04-03] MEDS: MELATONIN PO SCH (21:41)
[2019-04-04] MEDS: ROBITUSSIN PO PRN (06:01)
[2019-04-04] MEDS: NORCO-7.5 PO SCH ×2 (06:02→18:29)
[2019-04-04] MEDS: HUMALOG SUBQ SCH ×4 (06:03→22:12)
[2019-04-04 07:39] LABS: BASO# 0.01 X1000 (0.0-0.2); BASO% 0.1 % (0.0-0.8); EOS# 0.01 X1000 (0.0-0.7); EOS% 0.1 % (0.0-10.0); HEMOGLOBIN 16.6 g/dL (14.0-18.0); IMM GRAN# 0.07 X1000 (0.0-0.04); IMM GRAN% 0.4 % (0.0-0.5); LYMPH# 2.69 X1000 (1.2-3.4); LYMPH% 16.4 % (20.5-51.1); MCH 30.4 PG (27-31); MCHC 34.6 g/dL (33-37); MCV 87.9 FL (81-99); MONO# 1.09 X1000 (0.11-0.59); MONO% 6.6 % (1.7-9.3); NEUT# 12.57 X1000 (1.4-6.5); NEUT% 76.4 % (42.2-75.2); PLT 202 X1000 (130-400); RBC 5.46 XMIL (4.7-6.1); WBC 16.44 X1000 (4.8-10.8)
[2019-04-04] MEDS: LIPITOR PO SCH (08:28)
[2019-04-04] MEDS: IMDUR PO SCH (08:28)
[2019-04-04] MEDS: SOLU-MEDROL IV SCH (08:28)
[2019-04-04] MEDS: HUMULIN 70/30 SUBQ SCH ×2 (08:28→22:14)
[2019-04-04] MEDS: ATIVAN PO PRN ×2 (08:28→18:31)
[2019-04-04] MEDS: COREG PO SCH ×2 (08:28→22:13)
[2019-04-04] MEDS: EFFIENT PO SCH (08:28)
[2019-04-04] MEDS: NEURONTIN PO SCH ×3 (08:29→18:29)
[2019-04-04] MEDS: TAMIFLU PO SCH ×2 (08:29→22:14)
[2019-04-04] MEDS: ASPIRIN PO SCH (08:29)
[2019-04-04] MEDS: LOVENOX SUBQ SCH ×2 (08:29→22:21)
[2019-04-04 08:32] LABS: AGAP 12; BUN 31 mg/dL (8-22); CALCIUM 8.7 mg/dL (8.8-10.2); CHLORIDE 103 mmol/L (98-107); COSMO 288; CREATININE 0.8 mg/dL (0.7-1.2); ESTIMATED GFR > 60; GLUCOSE 166 mg/dL (70-104); MAGNESIUM 2.1 mg/dL (1.5-2.7); POTASSIUM 3.8 mmol/L (3.5-5.1); SODIUM 139 mmol/L (136-145); TCO2 24 mmol/L (25-35)
[2019-04-04] MEDS: LASIX IV SCH (12:17)
[2019-04-04] MEDS: ZITHROMAX 500 MG/NS 500 MG/250 ML IVPB IV SCH (12:18)
[2019-04-04] MEDS ORDERED: CODEINE PO PRN (13:12)
[2019-04-04] MEDS: ROCEPHIN 1 GM in NS 50 ML IV SCH (14:56)
[2019-04-04] MEDS: ROBITUSSIN-AC PO PRN ×2 (14:56→22:11)
--- NOTE | 2019-04-04 16:25 | PROGRESS NOTE ---
DATE: 04/04/2019 INTERVAL HISTORY: No acute events overnight. Patient's shortness of breath is slightly better than it was yesterday. He continues to have cough and wants me to give him cough medication. He says that his shortness of breath gets worse on physical exertion. Currently vitals suggest temperature of 97.5 degrees, pulse 75, respiratory 16, blood pressure 103/62, saturating 96% on room air. PHYSICAL EXAMINATION: He does not appear in any acute distress. He does have marked facial plethora. Oral cavity is moist. No pallor, cyanosis, clubbing or icterus. Decreased air entry bilateral lung rae with mild inspiratory crackles in infrascapular region. No appreciable wheeze or rhonchi. S1, S2 normal. Not tachycardic. No murmur or gallop. Abdomen obese, soft, negative hepatojugular reflex. Tympanic to percussion. He has mild lower extremity edema. He is alert, oriented x3. LABS: Suggestive of persistent leukocytosis with almost 0 eosinophil count suggestive of steroid induced leukocytosis. Essentially normal electrolytes except elevation of BUN. His troponin is 0.263. Sputum culture is pending. Urine antigens are also pending. ASSESSMENT AND PLAN: 1. Acute respiratory distress and sepsis in the setting of influenza type A and bilateral pulmonary edema and suspected community-acquired pneumonia. Continue intravenous ceftriaxone, azithromycin with intravenous steroids and also oseltamivir, continue ipratropium nebulization, continue p.r.n. medications for cough. Follow up sputum culture, urine antigens, blood culture and respiratory precautions. 2. Suspected non ST elevation myocardial infarction with prior history of coronary artery disease and coronary artery bypass graft with last stent being in May 2018 and mild acute systolic congestive heart failure exacerbation with ejection fraction of 35%. Continue enoxaparin at current dose for a total of 48 hours and then switch to prophylactic dose. Continue aspirin, prasugrel, isosorbide and atorvastatin, change intravenous Lasix to p.o., continue carvedilol as well. Appreciate Cardiology recommendation if he would need inpatient stress test early next week versus outpatient. 3. History of insulin-dependent diabetes mellitus type 2 with uncontrolled hyperglycemia with hemoglobin A1c of 19.9. Continue current dose of his home Humulin and sliding scale insulin and adjust dose according to blood sugar response. 4. Others, continue melatonin for insomnia, as needed Ativan for anxiety and home [place] for chronic pain. 5. Disposition. Patient remains inside the hospital for management of his respiratory status. If no further inpatient cardiovascular workup is planned my plan will be to discharge him in next 24 to 48 hours with outpatient cardiology followup. If stress test is plan inpatient then I would keep him until the stress test is done. Plan of care discussed with the patient and his at bedside, all of their questions have been answered. cc: Ant Kwon MD
[2019-04-04] MEDS: MELATONIN PO SCH (22:13)
[2019-04-05] MEDS: ATIVAN PO PRN ×3 (04:08→20:05)
[2019-04-05] MEDS: ATROVENT NEB INH PRN (04:40)
[2019-04-05] MEDS: PRILOSEC PO SCH ×2 (05:18→06:56)
[2019-04-05] MEDS: NORCO-7.5 PO SCH ×2 (05:18→17:52)
[2019-04-05] MEDS: HUMALOG SUBQ SCH ×4 (06:56→20:06)
[2019-04-05 07:42] LABS: BASO# 0.02 X1000 (0.0-0.2); BASO% 0.1 % (0.0-0.8); EOS# 0.03 X1000 (0.0-0.7); EOS% 0.2 % (0.0-10.0); HEMATOCRIT 49.9 % (42.0-52.0); HEMOGLOBIN 17.1 g/dL (14.0-18.0); IMM GRAN# 0.06 X1000 (0.0-0.04); IMM GRAN% 0.4 % (0.0-0.5); LYMPH# 3.68 X1000 (1.2-3.4); LYMPH% 24.2 % (20.5-51.1); MCH 30.3 PG (27-31); MCHC 34.3 g/dL (33-37); MCV 88.3 FL (81-99); MONO# 1.29 X1000 (0.11-0.59); MONO% 8.5 % (1.7-9.3); NEUT# 10.14 X1000 (1.4-6.5); NEUT% 66.6 % (42.2-75.2); PLT 207 X1000 (130-400); RBC 5.65 XMIL (4.7-6.1); WBC 15.22 X1000 (4.8-10.8)
[2019-04-05 07:58] LABS: AGAP 11; BUN 29 mg/dL (8-22); CALCIUM 8.7 mg/dL (8.8-10.2); CHLORIDE 103 mmol/L (98-107); COSMO 289; CREATININE 0.7 mg/dL (0.7-1.2); ESTIMATED GFR > 60; GLUCOSE 129 mg/dL (70-104); MAGNESIUM 2.2 mg/dL (1.5-2.7); POTASSIUM 3.5 mmol/L (3.5-5.1); SODIUM 141 mmol/L (136-145); TCO2 27 mmol/L (25-35)
[2019-04-05] MEDS: IMDUR PO SCH (09:14)
[2019-04-05] MEDS: COREG PO SCH ×2 (09:14→20:05)
[2019-04-05] MEDS: SOLU-MEDROL IV SCH (09:14)
[2019-04-05] MEDS: TAMIFLU PO SCH ×2 (09:14→20:05)
[2019-04-05] MEDS: LIPITOR PO SCH (09:14)
[2019-04-05] MEDS: EFFIENT PO SCH (09:14)
[2019-04-05] MEDS: HUMULIN 70/30 SUBQ SCH ×2 (09:15→20:06)
[2019-04-05] MEDS: NEURONTIN PO SCH ×3 (09:15→18:06)
[2019-04-05] MEDS: ASPIRIN PO SCH (09:15)
[2019-04-05] MEDS: LASIX PO SCH (09:15)
[2019-04-05] MEDS: LOVENOX SUBQ SCH (09:15)
[2019-04-05] MEDS: ZITHROMAX 500 MG/NS 500 MG/250 ML IVPB IV SCH (12:13)
[2019-04-05] MEDS: ROCEPHIN 1 GM in NS 50 ML IV SCH (12:14)
[2019-04-05] MEDS: ROBITUSSIN-AC PO PRN ×2 (12:27→20:05)
[2019-04-05] MEDS: MELATONIN PO SCH (20:05)
[2019-04-06] MEDS: TYLENOL PO PRN ×2 (01:50→20:28)
[2019-04-06] MEDS: ROBITUSSIN-AC PO PRN ×3 (01:51→20:31)
[2019-04-06] MEDS: ATIVAN PO PRN ×3 (04:13→20:28)
[2019-04-06] MEDS: NORCO-7.5 PO SCH ×2 (05:34→17:39)
[2019-04-06] MEDS: HUMALOG SUBQ SCH ×4 (06:18→20:32)
[2019-04-06] MEDS: PRILOSEC PO SCH (06:29)
--- NOTE | 2019-04-06 07:06 | PROGRESS NOTE ---
DATE: 04/05/2019 INTERVAL HISTORY: No acute events overnight. SUBJECTIVE: He is feeling better. His cough is also better. His denies any chest pain. His shortness of breath is better. We discussed about duration of flu treatment and answered all of his questions. OBJECTIVE: Vital signs: Temperature 97.5 degrees, pulse 72, respiratory rate 18, blood pressure of 115/73, saturating 95% on room air. General: He does not appear in any acute distress. HEENT: Oral cavity is moist. No pallor, cyanosis, clubbing, or icterus. Lungs: Decreased air entry bilateral lung rae without any wheeze, rhonchi, or crackles. Cardiovascular: S1, S2 normal. Not tachycardic. No murmur, rub, or gallop. Abdomen: Obese, soft, nontender. Tympany to percussion. Extremities: Mild lower extremity edema. Neurologic: He is alert, oriented x3. LABS: CBC today suggestive of WBC of 15,000, normal hemoglobin and hematocrit. He has normal BMP and normal magnesium. Microbiology: Final sputum cultures so far, sputum culture, blood culture no growth to date. His urine Legionella and streptococcal antigens have been unremarkable. ASSESSMENT AND PLAN: 1. Acute respiratory distress and sepsis in the setting of influenza type A, bilateral pulmonary edema, and community-acquired pneumonia suspected. Continue intravenous ceftriaxone, azithromycin, sestamibi, and intravenous steroids. Continue ipratropium nebulization and p.r.n. guaifenesin for cough. His respiratory distress has improved. I have change his Lasix from IV to p.o. 2. Suspected non-ST segment elevation myocardial infarction with prior history of coronary artery disease and CABG, with last stent in May 2018, with mild acute systolic congestive heart failure exacerbation with ejection fraction of 35% on chronic CHF. Continue aspirin, prasugrel, isosorbide, atorvastatin, and carvedilol. Change Lovenox to therapeutic dose. Inpatient nuclear medicine stress test with Lexiscan is planned on Sunday. 3. History of insulin dependent diabetes mellitus type 2 with uncontrolled hyperglycemia, with hemoglobin A1c more than 19.9, currently in acceptable range. Continue current dose of Humulin and sliding scale insulin. 4. Others, continue melatonin for insomnia, as needed Ativan for anxiety, [employer] for chronic pain. 5. Disposition: Patient remains inside the hospital for planned nuclear medicine stress test on Sunday. 6. Plan of care was discussed with the patient. All of his questions have been answered satisfactorily. 7. 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 cc: Ant Kwon MD
--- NOTE | 2019-04-06 08:28 | CARDIOLOGY PROGRESS NOTE ---
DATE: 04/05/2019 SUBJECTIVE: Mr. Shrestha reports he feels much better. Over the course of the hospitalization, his breathing has improved. He has not had any chest pain in the last couple of days. OBJECTIVE: Vital Signs: He is afebrile, heart rate 72, blood pressure 115/73. General: No acute distress. Cardiovascular: He sounds to be in a regular rate and rhythm. He has no murmurs. He has no S3. No lower extremity edema. Chest: Clear bilaterally. No increased work of breathing. Abdomen: Soft, nontender. PERTINENT LABORATORY DATA: White count 15.2, hematocrit is 49, platelet count is 207,000. Sodium 141, potassium 3.5, BUN 29, creatinine 0.7. ASSESSMENT: Mr. Shrestha is a 58-year-old gentleman who presented with influenza as well as possible pneumonia. He had troponin elevations as well as chest pain during the course of that. PLAN: He has a history of significant coronary disease. We will continue him on current medications. It does not seem that he has any adjustable medications based on his blood pressure and heart rate. We will plan on stress rest myocardial perfusion imaging on Sunday, and if this is unremarkable, then he could be discharged from a cardiovascular standpoint. He has a reduced ejection fraction of 35% based on echo earlier in this hospitalization. This is unchanged from previous. cc: Tay Chan MD
[2019-04-06] MEDS: ASPIRIN PO SCH (09:18)
[2019-04-06] MEDS: SOLU-MEDROL IV SCH (09:18)
[2019-04-06] MEDS: COREG PO SCH ×2 (09:18→20:28)
[2019-04-06] MEDS: NEURONTIN PO SCH ×3 (09:18→17:39)
[2019-04-06] MEDS: IMDUR PO SCH (09:19)
[2019-04-06] MEDS: HUMULIN 70/30 SUBQ SCH ×2 (09:19→20:31)
[2019-04-06] MEDS: TAMIFLU PO SCH ×2 (09:19→20:28)
[2019-04-06] MEDS: LOVENOX SUBQ SCH (09:20)
[2019-04-06] MEDS: LIPITOR PO SCH (09:20)
[2019-04-06] MEDS: LASIX PO SCH (09:20)
[2019-04-06] MEDS ORDERED: INSULIN PEN NEEDLES ONE (09:29)
[2019-04-06] MEDS: EFFIENT PO SCH (09:41)
[2019-04-06] MEDS: ROCEPHIN 1 GM in NS 50 ML IV SCH (12:19)
[2019-04-06] MEDS: ZITHROMAX 500 MG/NS 500 MG/250 ML IVPB IV SCH (12:19)
--- NOTE | 2019-04-06 15:53 | PROGRESS NOTE ---
DATE: 04/06/2019 INTERVAL HISTORY: No acute events overnight. SUBJECTIVE: The patient denies any chest pain. He denies any shortness of breath. He states he does get a little anxious after coughing episodes. We discussed about his health condition course. We discussed about stopping antibiotics and Tamiflu tonight. I answered all of his questions. VITALS: Currently temperature 97.4 degrees, pulse 82, respiratory rate 16, blood pressure 130/80, saturating 99% on room air. PHYSICAL EXAMINATION: General: Does not appear in any acute distress. HEENT: Oral cavity is moist. He has facial erythema. No cyanosis, clubbing, or icterus. He has decreased air entry bilateral lung rae without any wheeze, rhonchi, or crackles. Cardiovascular: S1, S2 normal. No murmur, rub, or gallop. Abdomen: Obese, soft, nontender. Extremities: Mild lower extremity edema. Neuro: He is alert and oriented x3. LABS: Suggestive of his blood sugars have been within acceptable range. MICROBIOLOGY: Sputum culture and blood culture final data did not show any growth to date. IMAGING: No new imaging data. ASSESSMENT AND PLAN: 1. Acute respiratory distress and sepsis in the setting of influenza type A, bilateral pulmonary edema, and suspected community-acquired pneumonia. I will stop his antibiotics and Tamiflu tonight. He is status post 5 days of Tamiflu and intravenous ceftriaxone and azithromycin. Continue ipratropium nebulization, p.r.n. guaifenesin for cough. His respiratory distress has improved. 2. Suspected [id number] myocardial infarction with prior history of coronary artery disease and CABG with last stent in May 2018 and mild acute systolic congestive heart failure exacerbation with EF of 35% on chronic systolic congestive heart failure. Continue aspirin, prasugrel, isosorbide, atorvastatin, carvedilol. Continue p.o. Lasix. The patient to undergo Lexiscan on Sunday. His Lovenox has been changed to prophylactic dose. 3. History of insulin-dependent diabetes mellitus type 2 with uncontrolled hyperglycemia with hemoglobin A1c more than 19.9. Currently blood sugars in acceptable range. Continue current dose of Humulin and sliding scale insulin. 4. Others. Continue melatonin for insomnia, as needed Ativan for anxiety, [place] for chronic pain. 5. Disposition. After nuclear medicine stress test, plan is to discharge the patient home if the stress test is negative. Social work consult has been placed for home nebulization therapy for his history of severe chronic obstructive pulmonary disease. Plan of care discussed with him. All of his questions have been answered. cc: Ant Kwon MD
[2019-04-06] MEDS: MELATONIN PO SCH (20:28)
[2019-04-07] MEDS: TYLENOL PO PRN (04:20)
[2019-04-07] MEDS: ATIVAN PO PRN (04:20)
[2019-04-07] MEDS: PRILOSEC PO SCH (06:02)
[2019-04-07] MEDS: NORCO-7.5 PO SCH (06:03)
[2019-04-07] MEDS: HUMALOG SUBQ SCH ×2 (06:04→11:24)
[2019-04-07] MEDS: ATROVENT NEB INH PRN (07:20)
[2019-04-07] MEDS ORDERED: LEXISCAN ONE (08:30)
[2019-04-07] MEDS: IMDUR PO SCH (10:32)
[2019-04-07] MEDS: LASIX PO SCH (10:32)
[2019-04-07] MEDS: ASPIRIN PO SCH (10:32)
[2019-04-07] MEDS: NEURONTIN PO SCH (10:32)
[2019-04-07] MEDS: COREG PO SCH (10:32)
[2019-04-07] MEDS: LIPITOR PO SCH (10:33)
[2019-04-07] MEDS: LOVENOX SUBQ SCH (10:33)
[2019-04-07] MEDS: SOLU-MEDROL IV SCH (10:33)
[2019-04-07] MEDS: ROBITUSSIN-AC PO PRN ×2 (10:33→10:41)
[2019-04-07] MEDS: EFFIENT PO SCH (10:33)
--- NOTE | 2019-04-07 10:44 | Diag Imaging Result Document ---
PROCEDURE NAME: MYOCARDIAL PERF SCAN, STR/REST - 04/07/2019 LEXISCAN CARDIOLITE STRESS TEST: TECHNIQUE: Lexiscan was infused per standard protocol. There was no chest pain. Stress electrocardiogram was negative for ischemia. Following Lexiscan infusion, Cardiolite was injected. Gated SPECT images were obtained in standard views. 14.9 mCi of Cardiolite was injected for the rest phase. 41.2 mCi of Cardiolite was injected for the stress phase. FINDINGS: 1. Images reveal left ventricle is dilated. 2. There is chest wall attenuation as well. 3. There is a fixed defect in the left ventricular apex diagnostic of infarct or scar. In addition, there is fixed defect in the inferolateral wall diagnostic of scar. There is large- sized, fixed defect in the inferior wall diagnostic of scar. 4. There is moderate grade reversible perfusion defect moderate size in the anterior wall suggestive of ischemia. In addition, there is reversible defect in the lateral wall suggestive of cheyanne-infarct ischemia. Left ventricular ejection fraction by gated SPECT was 38%. This is a cardiomyopathy picture. CONCLUSIONS: 1. No chest pain. 2. Negative Lexiscan stress electrocardiogram. 3. Myocardial perfusion images revealed dilated left ventricle. 4. There is severe grade, large-sized, fixed defect in the inferolateral wall diagnostic of infarct in addition to left ventricular apex. 5. There is reversible perfusion defect. Moderate grade, moderate size, in the anterior wall and in the anterolateral wall low-grade, suggestive of cheyanne-infarct ischemia. 6. Left ventricular ejection fraction by gated SPECT was 38%. cc: MD Tay Mayers MD
[2019-04-07] MEDS: HUMULIN 70/30 SUBQ SCH (11:24)
[2019-04-07 12:50] VITALS: BP 128/74
[2019-04-07] MEDS ORDERED: NEURONTIN PO SCH (15:00)
--- NOTE | 2019-04-07 17:07 | CARDIOLOGY PROGRESS NOTE ---
DATE: 04/07/2019 SUBJECTIVE: Mr. Shrestha has not had any more chest pain. He has no orthopnea. PHYSICAL EXAMINATION: Vital Signs: Afebrile. Heart rate 72, blood pressure 128/74. General: He is in no acute distress. Cardiovascular: He sounds to be in a regular rate and rhythm. He has no murmurs, no S3. He has no lower extremity edema. Chest: Sounds relatively clear. He has no increased work of breathing. Abdomen: Soft, nontender. PERTINENT DATA: He has no new chemistry data. His nuclear scan demonstrated a reversible defect in the anterior and anterior lateral wall suggestive of possible ischemic changes. His EF on that study was 38%. In addition, he had a large-sized fixed defect in the inferior lateral wall and inferior wall. ASSESSMENT: Mr. Shrestha is a 58-year-old male with a history of coronary disease. He presented with flu and probable heart failure. PLAN: The degree his chest x-ray improved during the course of the hospitalization would suggest that he has significant component of pulmonary edema probably due to heart failure. I agree with the addition of oral diuretics in the form of Lasix 40 mg daily. In addition, I will try to add in an increased dose of Coreg at 6.25 b.i.d., and I have added in Ranexa 500 b.i.d. to his medication list to increase his antianginal regimen. We will have him follow up with Dr. Reaves to reassess his symptoms. At some point down the road, he probably needs a reconsideration for possible defibrillator. His ejection fraction was 35% based on echo and 38% by nuclear scan. cc: Tay Chan MD
[2019-04-07] MEDS ORDERED: COREG PO SCH (21:00)
[2019-04-07] MEDS ORDERED: RANEXA PO SCH (21:00)
[2019-04-08] MEDS ORDERED: LEXAPRO PO SCH (09:00)
--- NOTE | 2019-04-08 12:00 | DISCHARGE SUMMARY ---
ADMISSION DATE: 04/02/2019 DISCHARGE DATE: 04/07/2019 DISCHARGE DISPOSITION: Home. DISCHARGE CONDITION: The patient is hemodynamically stable. Denies any chest pain or shortness of breath. He denies any nausea, vomiting, abdominal pain. He does have occasional cough post influenza and he wants me to write a prescription for cough syrup. He has been provided a nebulizer prescription as well. CONSULTATIONS DURING HOSPITALIZATION: 1. Supply Coordinator, DR. Tay Chan. 2. 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 DISCHARGE DIAGNOSES: 1. Acute respiratory distress. 2. Sepsis due to influenza type A. 3. Bilateral pulmonary edema and suspected community-acquired pneumonia. 4. Elevated cardiac enzymes, likely in the setting of non ST myocardial infarction. 5. Hyperglycemia with history of insulin-dependent diabetes mellitus and medication noncompliance. 6. Anxiety. 7. Past medical history of coronary artery disease. 8. Past medical history of chronic systolic congestive heart failure with ejection fraction of 35% and mild acute exacerbation during this hospital admission. 9. History of hyperlipidemia. 10. History of insulin-dependent diabetes mellitus type 2. 11. Essential hypertension. 12. Peripheral diabetic neuropathy. 13. Chronic gastroesophageal reflux disease. 14. Coronary artery disease status post myocardial infarction and stenting as well as coronary artery bypass grafting in the past in May 2018 and future plans of automatic implanted cardioverter defibrillator. 15. Chronic obstructive pulmonary disease. DISCHARGE MEDICATIONS: 1. Aspirin 81 mg daily. 2. Prasugrel 10 mg in the morning time. 3. Isosorbide mononitrate extended release 30 mg in the morning time. 4. Gabapentin 600 mg t.i.d. 5. Byron 7.5 one tablet b.i.d. 6. NovoLog 70/30, 40 units b.i.d. 7. Omeprazole 40 mg daily. 8. Atrovent nebulizer solution 0.5 mg inhaled q.4 hours as needed for shortness of breath. A 30 day supply has been requested. 9. Carvedilol 6.25 mg b.i.d. 10. Furosemide 40 mg daily. 11. Escitalopram 10 mg in the morning time. 12. Atorvastatin 80 mg daily. 13. Ranolazine 500 mg b.i.d. 14. Guaifenesin codeine 5 mL q.4 hours as needed for cough. A BMP slip has also been provided. VITAL SIGNS: At the time of discharge, temperature 97.9 degrees, pulse 72, respiratory rate 16, blood pressure 128/74, saturating 97% on room air. PHYSICAL EXAMINATION: General: Patient does not appear in any acute distress. He is anxious. Oral cavity is moist. Lungs: No wheeze, rhonchi. Cardiovascular: S1, S2 normal. No murmur, rub or gallop. Abdomen: Soft, nontender. No lower extremity edema. Neurologic: He is alert and oriented x3. SIGNIFICANT LABORATORY DATA: During hospital [place] [address] [address] [place] admission, which [place] [address] at the time of discharge, with eosinophil count of 0%. His BMP was suggestive of normal electrolytes, potassium of 3.5, creatinine of 0.7, BUN of 29. His blood sugars where 154 at the time of discharge. Troponins, he did have a rise in elevated troponins which increased from 0.03 and had peaked to 0.365 and after that, it has started trending down. His lipid panel had a total cholesterol of 230 and LDL cholesterol of 166. His urine Legionella and streptococcal antigens were negative. Urinalysis was negative. SIGNIFICANT MICROBIOLOGY: During hospital admission, blood cultures, sputum culture data did not show any growth. Influenza screen was positive for type A influenza. SIGNIFICANT IMAGING: During hospital admission, chest CT on admission had pulmonary edema plus or minus pneumonia bilaterally. Myocardial perfusion scan on 04/07/2019 had suggested negative Lexiscan stress electrocardiogram. Myocardial perfusion image revealed dilated left ventricle. There was severe-grade large-sized fixed defect in the inferolateral wall diagnostic of infarct in addition to left ventricular apex. There was also a reversible perfusion defect moderate in size in the anterior wall and in the anterolateral wall suggestive of cheyanne-infarct ischemia. The ejection fraction was 38%. Echocardiogram on April 02 had suggested ejection fraction of 35% in the setting of global hypokinesia. HOSPITAL COURSE SUMMARY: Mr. Shrestha is a 58-year-old man with past medical history of coronary artery disease, COPD, who presented with acute onset of shortness of breath of about 1 day duration associated with productive cough, subjective fever, chills, and substernal pain to an extent that he was not able to move air and was feeling wheezy and that is why he came to the emergency room. When in the emergency room, he was found to have tachypnea, tachycardia and hypoxia. He was given IV steroids, IV antibiotics, and positive influenza type A, so Hospitalist team was consulted for further management. During hospitalization, he was admitted for acute respiratory distress. He was treated with Tamiflu for influenza type A, intravenous antibiotics for bilateral suspected community-acquired pneumonia and intravenous Lasix for bilateral pulmonary edema, which was changed to p.o. Lasix at the time of discharge. He was also given azithromycin. He was continued on guaifenesin for cough, following which his respiratory distress had resolved and he was breathing well on room air at the time of discharge, nebulization machine was set up. While inside the hospital, the troponin started rising, though the electrocardiogram on admission had sinus tachycardia, left ventricular hypertrophy with repolarization abnormalities and no other new acute changes. Considering his positive troponin trend, he was continued on his home medication of aspirin, prasugrel, and statin and he also was treated with subcutaneous Lovenox for therapeutic dose for 48 hours and he eventually underwent nuclear medicine stress test. This test had detected previous scar as well as some cheyanne-infarct ischemia. The area was thought to be too small for any intervention by the piece worker and it was recommended to intensify medical management. He also previously had history of medical noncompliance. So at the time of discharge, his cardiovascular regimen was intensified and he was advised to follow up with his outpatient doctor. He was also advised to take better control of his diabetes since his hemoglobin A1c was more than 19 at the time of hospital admission. TIME SPENT: More than 30 minutes were spent in discharging the patient. At the time of discharge, all of his and his 's questions were answered satisfactorily. cc: Ant Kwon MD
== END 2019-04-07 17:04 | disposition home health service (06) | DRG 871 ==
LOC: SUPCPDRO → ED 09:53 → 3N 13:05 → SUATTDRO 13:05
PROVIDERS: ATTEND Internal Medicine
CPT/HCPCS: 71010; 71045; 71250; 78452; 80048; 80053; 80061; 81001; 82550; 82553; 82805; 82948; 83036; 83605; 83690; 83721; 83735; 83880; 84439; 84443; 84484; 85025; 85610; 85730; 87040; 87070; 87205; 87275; 87276; 87449; 87804; 87899; 89220; 93005; 93010; 93017; 93306; 94640; 94760; 94761; 96365; 96366; 96367; 96375; 99285; A9270; A9500; C8929; J0456; J0696; J1650; J1815; J1940; J2270; J2785; J2930; Q9957; XXXXX